=== PATIENT | female | born 1960 | race Caucasian/White ===

== ENCOUNTER 2024-02-03 14:45 | Day surgery (SDC) | payer MEDICARE, OTHER ==
[2024-02-03] MEDS ORDERED: BUPIVACAINE 0.5% VIAL IJ ONE (14:46)
[2024-02-03] MEDS ORDERED: Depo-Medrol 40 MG/ML IM ONE (14:46)
[2024-02-03] MEDS ORDERED: LIDOCAINE HCL 1% 50 MG/5 ML VL PF IJ ONE (14:46)
--- NOTE | 2024-02-03 17:28 | XRAY ---
14 seconds of fluoroscopy was used in surgery for a left intra-articular shoulder and subacromial bursa injection.
--- NOTE | 2024-02-03 17:29 | XRAY ---
Indication: Left shoulder and subacromial bursa injection. Intraoperative fluoroscopy provided for 14 seconds. 2 digital spot image submitted for interpretation demonstrates needle tip projecting over left glenohumeral joint superiorly. Second needle tip subacromial. Small amount of contrast injected for needle tip placement. Correlate with intraoperative findings/report.
== END 2024-02-03 16:55 | disposition home or self-care (01) ==
LOC: SDC-PAIN 14:45
PROVIDERS: ATTEND Psychiatry & Neurology Pain Medicine
DX: M19.012 Primary osteoarthritis, left shoulder (principal); M75.52 Bursitis of left shoulder
CPT/HCPCS: 20610; 73030; 77002; J2001; Q9966

== ENCOUNTER 2024-10-05 09:54 | Day surgery (SDC) | payer MEDICARE, OTHER ==
[2024-10-05] MEDS ORDERED: LIDOCAINE HCL 2% 100 MG/5 ML IJ ONE (09:55)
[2024-10-05] MEDS ORDERED: Depo-Medrol 40 MG/ML IM ONE (09:55)
[2024-10-05] MEDS ORDERED: propofoL IV ONE (12:45)
--- NOTE | 2024-10-05 16:29 | XRAY ---
Indication: Bilateral L4-S1 MBB. Intraoperative fluoroscopy provided for 10 seconds. Single digital spot image submitted for interpretation demonstrates posterior needle tips projecting over expected left and right L4-S1 nerve roots. Correlate with intraoperative findings/report.
--- NOTE | 2024-10-05 16:46 | XRAY ---
10 seconds of fluoroscopy was used in surgery for a bilateral L4-S1 MBB.
== END 2024-10-05 13:18 | disposition home or self-care (01) ==
LOC: SDC-PAIN 09:54
PROVIDERS: ATTEND Psychiatry & Neurology Pain Medicine
DX: M47.817 Spondylosis without myelopathy or radiculopathy, lumbosacral region (principal)
CPT/HCPCS: 64493; 64494; 72020; J2704

== ENCOUNTER 2024-10-27 09:50 | Day surgery (SDC) | payer MEDICARE, OTHER ==
[2024-10-27] MEDS ORDERED: methylPREDNISolone acetate IM ONE (09:51)
[2024-10-27] MEDS ORDERED: BUPIVACAINE 0.5% VIAL IJ ONE (09:51)
[2024-10-27] MEDS ORDERED: propofoL IV ONE (11:49)
[2024-10-27] MEDS ORDERED: Lactated Ringers 1,000 ML IV ONE (12:21)
--- NOTE | 2024-10-27 13:19 | XRAY ---
Indication: Bilateral L4-S1 MBB. Intraoperative fluoroscopy for right for 10 seconds. Single digital spot image submitted for interpretation demonstrates posterior needle tips projecting over expected left and right L4-S1 nerve roots. Correlate with intraoperative findings/report.
--- NOTE | 2024-10-27 14:07 | XRAY ---
10 seconds of fluoroscopy were used in surgery for a bilateral L4-S1 MBB.
== END 2024-10-27 12:14 | disposition home or self-care (01) ==
LOC: SDC-PAIN 09:50
PROVIDERS: ATTEND Psychiatry & Neurology Pain Medicine
DX: M47.817 Spondylosis without myelopathy or radiculopathy, lumbosacral region (principal)
CPT/HCPCS: 64493; 64494; 72020; J1010; J2704

== ENCOUNTER 2025-01-18 10:14 | Day surgery (SDC) | payer MEDICARE, OTHER ==
[2025-01-18] MEDS ORDERED: XYLOCAINE 2% HCL 20 ML MDV IJ ONE (10:15)
[2025-01-18] MEDS ORDERED: propofoL IV ONE (12:17)
[2025-01-18] MEDS ORDERED: Lactated Ringers 1,000 ML IV ONE (12:42)
--- NOTE | 2025-01-18 13:26 | XRAY ---
Indication: Right C3-C5 MBB. Intraoperative fluoroscopy provided for 13 seconds. 2 digital spot images submitted for interpretation demonstrates posterior needle tips projecting over expected right C3-C5 nerve roots. Correlate with intraoperative findings/report.
--- NOTE | 2025-01-18 15:24 | XRAY ---
13 seconds of fluoroscopy was used in surgery for a right C3-C5 MBB.
== END 2025-01-18 12:53 | disposition home or self-care (01) ==
LOC: SDC-PAIN 10:14
PROVIDERS: ATTEND Psychiatry & Neurology Pain Medicine
DX: M47.812 Spondylosis without myelopathy or radiculopathy, cervical region (principal)